=== PATIENT | male | born 1990 | race Caucasian/White ===

== ENCOUNTER 2017-07-30 19:33 | Inpatient (IN) | payer OTHER ==
[~2017-07-30] VITALS: Ht 177.8 cm; Wt 64.0 kg
[2017-07-30] MEDS ORDERED: OPTIRAY 320 IV PRN (20:45)
[2017-07-30 21:09] LABS: HEMATOCRIT 44.8 % (42-52); HEMOGLOBIN 16.1 g/dL (14.0-18.0); MEAN CELL VOLUME 86.2 fL (80-100); MEAN CORPUSCULAR HGB CONC 35.9 g/dl (32-36); MEAN PLATELET VOLUME 11.2 fL (7.4-10.4); PLATELET COUNT 265 K/uL (130-400); RED CELL DISTRIBUTION WIDTH CV 13.1 % (11.5-14.5); RED CELL DISTRIBUTION WIDTH SD 41.8 fL (36.4-46.3); WHITE BLOOD COUNT 11.13 K/uL (4.8-10.8)
[2017-07-30 21:19] LABS: ALBUMIN 4.6 gm/dl (3.4-5.0); CALCIUM 9.4 mg/dl (8.5-10.1); POTASSIUM 3.6 mmol/L (3.5-5.1)
--- NOTE | 2017-07-30 22:00 | DIAGNOSTIC IMAGING REPORT ---
HEAD COMBO HISTORY: 27 years-old Male poss mass or bleed, bizzare behavior acute altered behavior COMPARISON: None available TECHNIQUE: Multiple axial CT images of the head were obtained both with and without the use of IV 94 no Optiray 320 IV contrast. A dose lowering technique was used consistent with the principals of MOLLY. FINDINGS: There is no acute intracranial hemorrhage, midline shift, abnormal extra-axial collections, hydrocephalus, territorial ischemia or intracranial mass. There is no abnormal intra-axial or extra-axial enhancement identified. Cerebral venous sinuses appear patent. No skull fracture. Mastoid air cells and middle ear cavities are clear. Paranasal sinuses are also generally clear. Soft tissues and orbits are unremarkable. IMPRESSION: No acute intracranial abnormality or abnormal enhancement. The above report was generated using voice recognition software. It may contain grammatical, syntax or spelling errors. Electronically signed by: Harshil Chicas M.D. 07/30/2017 9:58 PM Dictated Date/Time: 07/30/2017 9:55 PM
--- NOTE | 2017-07-30 23:41 | EMERGENCY ROOM VISIT NOTE ---
History Report prepared by Daily: Curt Tolliver Under the Supervision of: Dr. Tyron Steele M.D. First contact with patient: 20:07 Chief Complaint: MENTAL HEALTH EVALUATION Stated Complaint: MENTAL HEALTH EVAUATION History of Present Illness The patient is a 27 year old male who presents to the Emergency Room with complaints of constant disorientation beginning five days ago. Per sister, the patient smoked marijuana five days ago and has seemed forgetful and disoriented since. She notes that the patient came to their childhood home the next day and could not remember where the water glasses were or the pet's names. She reports that since then, the patient has started to slowly remember things. She states that the patient has not been sleeping much. She notes that the patient was drug tested, but reports that the only thing that came back positive was marijuana. She states that the patient also smokes cigarettes, and notes that smoking seems to worsen his anxiety. The patient notes that he does not have any suicidal ideations because he "loves himself too much," but reports that he believes that he is immortal. The patient states that he has a history of OCD but does not have any other medical problems. He notes that he has "had a surreal week, and is currently trying to put the pieces together." He reports that he has been a "bit more poetic than usual and does not seem to have a perfect grasp on reality." The patient states that he has "black, pace, and white in his head," and notes "that the pace section is currently getting larger." Per mother, the patient seems to be regressing to more childlike behaviors. She notes that he is hugging her more, crying, and taking about magic and wizards. Source of History: patient, parent (mother), family (sister) Onset: five days ago Position: head Quality: other (disorientation) Timing: constant Note: Per sister, the patient has not been sleeping much and has been more forgetful. The patient denies any suicidal ideations. Per mom, the patient has been regressing back to more childlike behaviors. Review of Systems See HPI for pertinent positives & negatives. A total of 10 systems reviewed and were otherwise negative. Past Medical & Surgical Medical Problems: (1) OCD (obsessive compulsive disorder) Family History No pertinent family history stated. Social History Smoking Status: Current Some Day Smoker Drug Use: marijuana Marital Status: in relationship Housing Status: lives with significant other Occupation Status: employed Current/Historical Medications No Active Prescriptions or Reported Meds Allergies Coded Allergies: Amoxicillin (Verified Allergy, Unknown, Rash, 07/30/17) Clavulanic Acid (Verified Allergy, Unknown, Rash, 07/30/17) Physical Exam Vital Signs Date Time Temp Pulse Resp B/P (MAP) Pulse Ox O2 Delivery O2 Flow Rate FiO2 07/30/17 21:33 80 20 133/89 98 Room Air 07/30/17 19:38 36.7 75 18 142/87 100 Room Air Physical Exam GENERAL: Patient is in no acute distress. HEENT: No acute trauma, normocephalic atraumatic, mucous membranes moist, no nasal congestion, no scleral icterus, pupils equal and reactive to light. NECK: No stridor, no adenopathy, no meningismus, trachea is midline. LUNGS: Clear to auscultation bilaterally, no wheeze, no rhonchi, breath sounds equal. HEART: Without murmurs gallops or rubs, regular rate and rhythm. ABDOMEN: Soft, nontender, bowel sounds positive, no hernias, no peritonitis. EXTREMITIES: No cyanosis or edema, full range of motion of all the joints without pain or difficulty, no signs for acute trauma. NEUROLOGIC: Oriented x 3, no acute motor or sensory deficits, no focal weakness , no cerebellar dysfunction or pronator drift, no speech slur. SKIN: No rash, no jaundice, no diaphoresis. PSYCH: Cooperative, voluntary, tangential thinking, seems detached from reality , bizarre answers to simple questions, denies being suicidal. Medical Decision & Procedures ER Provider Diagnostic Interpretation: Radiology results as stated below per my review and radiologist interpretation: HEAD COMBO FINDINGS: There is no acute intracranial hemorrhage, midline shift, abnormal extra-axial collections, hydrocephalus, territorial ischemia or intracranial mass. There is no abnormal intra-axial or extra-axial enhancement identified. Cerebral venous sinuses appear patent. No skull fracture. Mastoid air cells and middle ear cavities are clear. Paranasal sinuses are also generally clear. Soft tissues and orbits are unremarkable. IMPRESSION: No acute intracranial abnormality or abnormal enhancement. The above report was generated using voice recognition software. It may contain grammatical, syntax or spelling errors. Electronically signed by: Harshil Chicas M.D. 07/30/2017 9:58 PM Laboratory Results 07/30/17 20:35 07/30/17 20:35 Test 07/30/17 20:35 07/30/17 20:43 07/30/17 22:25 Red Blood Count 5.20 M/uL (4.7-6.1) Mean Corpuscular Volume 86.2 fL (80-100) Mean Corpuscular Hemoglobin 31.0 pg (25-34) Mean Corpuscular Hemoglobin Concent 35.9 g/dl (32-36) RDW Standard Deviation 41.8 fL (36.4-46.3) RDW Coefficient of Variation 13.1 % (11.5-14.5) Mean Platelet Volume 11.2 fL (7.4-10.4) Anion Gap 7.0 mmol/L (3-11) Est Creatinine Clear Calc Drug Dose 102.4 ml/min Estimated GFR () 118.2 Estimated GFR (Non- 102.0 BUN/Creatinine Ratio 11.7 (10-20) Calcium Level 9.4 mg/dl (8.5-10.1) Total Bilirubin 1.1 mg/dl (0.2-1) Aspartate Amino Transf (AST/SGOT) 23 U/L (15-37) Alanine Aminotransferase (ALT/SGPT) 26 U/L (12-78) Alkaline Phosphatase 67 U/L (45-117) Total Protein 8.0 gm/dl (6.4-8.2) Albumin 4.6 gm/dl (3.4-5.0) Globulin 3.4 gm/dl (2.5-4.0) Albumin/Globulin Ratio 1.3 (0.9-2) Thyroid Stimulating Hormone (TSH) 1.690 uIu/ml (0.300-4.500) Salicylates Level < 1.7 mg/dl (2.8-20) Acetaminophen Level < 2 ug/ml (10-30) Ethyl Alcohol mg/dL < 3.0 mg/dl (0-3) Urine Color YELLOW Urine Appearance CLEAR (CLEAR) Urine pH 5.5 (4.5-7.5) Urine Specific [place] 1.040 (1.000-1.030) Urine Protein NEG (NEG) Urine Glucose (UA) NEG (NEG) Urine Ketones NEG (NEG) Urine Occult Blood NEG (NEG) Urine Nitrite NEG (NEG) Urine Bilirubin NEG (NEG) Urine Urobilinogen NEG (NEG) Urine Leukocyte Esterase SMALL (NEG) Urine WBC (Auto) 1-5 /hpf (0-5) Urine RBC (Auto) 0-4 /hpf (0-4) Urine Hyaline Casts (Auto) 0 /lpf (0-5) Urine Epithelial Cells (Auto) 5-10 /lpf (0-5) Urine Bacteria (Auto) NEG (NEG) Urine Opiates Screen NEG (NEG) Urine Methadone, Qualitative NEG (NEG) Urine Barbiturates NEG (NEG) Urine Phencyclidine (PCP) Level NEG (NEG) Ur Amphetamine/Methamphetamine NEG (NEG) MDMA (Ecstasy) Screen NEG (NEG) Urine Benzodiazepines Screen NEG (NEG) Urine Cocaine Metabolite NEG (NEG) Urine Marijuana (THC) NEG (NEG) Laboratory results reviewed by me. ED Course 2007: The patient was evaluated in room A7. A complete history and physical exam was performed. 2330: I spoke to psychiatric case management about the patient. 0042: Upon reexamination the patient is stable. I discussed results and treatment plan with the patient. He verbalizes agreement and understanding. The patient has been admitted to [facility] for further evaluation and treatment. Medical Decision Differential diagnoses include: brain mass, drug/alcohol abuse, electrolyte abnormalities, thyroid disorder, psychotic break, psychosis, and schizophrenia. There is a mild leukocytosis, this could be consistent with infection or just the stress of his situation. No concerning anemia. No significant electrolyte abnormality, kidney failure or hepatitis. The patient appears to be in a euthyroid state. Aspirin, Tylenol and alcohol levels were undetectable. Urine tox was negative. Urinalysis did not show evidence for infection. Brain CT showed no acute bleed or mass-effect, no tumor noted. The patient presents with bizarre behavior for the last several days. His medical workup has returned unrevealing. He was felt medically clear for a psychiatric evaluation. The patient was seen by psychiatry case management. He has signed in voluntarily to our hospital's psychiatric floor. The patient appears to be suffering a new psychotic break. His family has been informed. Patient is being transferred to the third floor of his hospital. Blood Pressure Screening Patient's blood pressure: Elevated blood pressure Blood pressure disposition: Elevated BP felt to be situational Impression Primary Impression: Psychosis Scribe Attestation The scribe's documentation has been prepared under my direction and personally reviewed by me in its entirety. I confirm that the note above accurately reflects all work, treatment, procedures, and medical decision making performed by me. Departure Information Dispostion Mental Health Acute Care Prescriptions No Active Prescriptions or Reported Meds Referrals No Doctor, Assigned (PCP) Patient Instructions My [facility]
[2017-07-31] MEDS ORDERED: NURSING VERBAL MED ORDER ONE ×2 (00:45→18:00)
[2017-07-31 00:57] VITALS: O2SAT 98
[2017-07-31] MEDS ORDERED: MAGNESIUM HYDROXIDE SUSP 30 ML UDC PO PRN (01:15)
[2017-07-31] MEDS ORDERED: ALUMINUM/MAGNESIUM SUSP 30 ML UDC PO PRN (01:15)
[2017-07-31] MEDS ORDERED: ACETAMINOPHEN 325 MG TAB PO PRN (01:15)
[2017-07-31] MEDS ORDERED: BISMUTH SUBSALICYLATE PER ML OMNICELL CHARGE PO PRN (01:15)
[2017-07-31] MEDS ORDERED: SODIUM CHLORIDE 0.65% NA SOLN 45 ML (OCEAN) PRN (01:15)
[2017-07-31 03:23] VITALS: BP 127/87; PULSE 88; TEMP 36.7; Ht 177.8 cm; Wt 64.0 kg
[2017-07-31 06:57] VITALS: BP_SYST 114; BP_SYST 123; BP_DIAS 78; BP_DIAS 87; PULSE 62; PULSE 76; TEMP 36.7
--- NOTE | 2017-07-31 08:56 | Psychiatric History & Physical ---
History Date of Service Jul 31, 2017. Identifying Data Ja Gordon is a 27-year-old male admitted on Jul 31, 2017 at 00:49 who recently returned to live with his parents in [place], [place]. Ja Gordon was admitted on a 201 voluntary commitment. Patient is admitted from home. The patient was brought to the ED by the family. Information provided by the patient is considered to be unreliable and greatly disorganized. Chief Complaint "Yeah, I am a little concerned about all the cameras. It is almost like "who watches the watcher", you know?" History of Present Illness Ja Gordon 27-year-old male who was driven to the emergency room by his family for a mental health evaluation. Family reported "constant disorientation" for the past 5 days with behavior. Pt states he uses substances to "look at everything from different perspectives". He states he uses marijuana and cigarettes at times which allow him to experience a "normal, elevated, and depressed" view of situations, "that of course is influenced by my current mood, it would be graphed almost as 3 parallel waves." Pt states 2- 3 months ago he "pieced everything together". His description of this stay, but generally meaning he has figured out the meaning of life, and how best to manage the world. Patient refers to this idea as a "puzzle/joke -because it means when you figure it out for yourself". Patient states, "I have the information and trying to be cautious, but goes fast as I can." Pt reports "several organizations who have figured it out too", but states is trying to "find the good guys." When questioned about the events leading to his admission, the patient states " I had an experience, you could say it was caused by the Divine." Pt reports accepting a "marijuana/vape shot" from a downstairs neighbor several days ago. He states he was with his ex-girlfriend at the time. Pt reports it was in the high that he "solved the puzzle" in front of his ex, "who referred to herself as cande". He states she became distraught at his conclusion and "feared the world would end". "That's what happens when you solve the puzzle for other people - they get scared". Pt reports he set out to further explain his new insight and was found by family members walking the streets of [place], "in my ismael shirt, which didn't necessarily work other than I guess I was walking in front of traffic." Pt reports he was taken home by his family and "put in isolation". ED notes state the family presented for mental health evaluation upon recommendation from a family friend/therapist. Pt reports limited sleep for an unknown period of time. He states he sleeps at "6-15 minute clips, but I feel refreshed. Still disoriented though." He feels he reached this state due to malnutrition and believes he can heal himself through proper nutritional intake, "something I wasn't paying close enough attention to before." Family reports a 20lb weight loss in the last few months. Pt is requesting a visit from dietary to further discuss the matter. He reports his only psychiatric history being a diagnosis of OCD which he views as a "super power". He reports a 3-week trial of buspirone, initially prescribed for his OCD, but states he only took it to aid with smoking cessation. Pt states, "there is nothing psychologically wrong with me, that's why I never saw anyone." Pt is severely disorganized and shares with this provider the extent of his knowledge and "how everything is interwoven". Pt states several times, "is this where the straight jackets come out?" He denies overt depression and states, "I trained in a depressed state my entire life, I feel better with myself now." Pt also denies symptoms of anxiety, feeling he can "turn anxious energy into positive energy." Pt offers a great deal of philosophical anecdotes to his history, and closes by saying, "If I'm the first one here, then I'm the CPU for the whole human race - that's not a title I want to take, I 'd rather just do computing while I'm here." Pt appears to believe that he is involved in a plan here on the unit and is seeking answers as to our agenda and how we will be utilizing him. He denies SI/HI, current A/V hallucinations, and PTSD. Past Psychiatric History Current OP Treatment: no current treatment Prior OP Treatment: no prior treatment Prior Psych Hospitalizations: none Access to a Gun: No Suicide Attempts: No Past Medication Trials Per patient report: - Buspirone: 3 week duration 2 years ago, reports using it for smoking cessation Additional Notes Patient reports seeing a physician for a diagnosis of OCD. States he was told "medicating people strips away their ability to cope". Denies therapy past, stating he always viewed his OCD as a "super power". Past Medical/Surgical History History of Concussion/Seizure: No Allergies Allergies: Coded Allergies: Amoxicillin (Verified Allergy, Unknown, Rash, 07/30/17) Clavulanic Acid (Verified Allergy, Unknown, Rash, 07/30/17) Home Medications No Active Prescriptions or Reported Meds Family History History of Suicide: No Psychiatric History: No Alcohol Use Alcohol Use In Past 12 Months: No AUDIT Total Score: 0 Denies any alcohol use. Smoking Use Smoking Status: Light Tobacco Smoker Substance History Reports "diverse and unique" substance abuse history: Kava Kava, Salvia, "so much weed", and cigarettes. Notes state a reported use of 3-4 bowls of pot per day. Personal History Lives in: [place], [place] - "but I'm flexible in that" Education: graduated from high school, started college (some classes at [employer] and [employer], [place]) Work History: Reports having a job at [employer] [place] feels they are a "linked organization as well" Relationship History: never Children: None Spiritual Affiliation: Remains unclear Legal History: none Psychological Trauma History: Denies Hx Traumatic Event Review of Systems Psych: denies symptoms other than stated above Constitutional: denied Cardiovascular: denied GI: denied Neurologic: denied Remainder of 10 body systems also reviewed and denied other than noted above. Examination Physical Examination A physical exam was performed in the ER prior to admission to the unit by Dr. Tyron Steele M.D.. I accept that physical as correct/medical clearance for the inpatient physical exam. Vital Signs Vital Signs Past 12 Hours Date Time Temp Pulse Resp B/P (MAP) Pulse Ox O2 Delivery O2 Flow Rate FiO2 07/31/17 06:57 36.7 62 16 114/78 76 123/87 07/31/17 03:23 36.7 88 20 127/87 07/31/17 00:57 91 20 98 07/30/17 21:33 80 20 133/89 98 Room Air Laboratory Results Last 24 Hours Test 07/30/17 20:35 07/30/17 20:43 07/30/17 22:25 White Blood Count 11.13 K/uL Red Blood Count 5.20 M/uL Hemoglobin 16.1 g/dL Hematocrit 44.8 % Mean Corpuscular Volume 86.2 fL Mean Corpuscular Hemoglobin 31.0 pg Mean Corpuscular Hemoglobin Concent 35.9 g/dl RDW Standard Deviation 41.8 fL RDW Coefficient of Variation 13.1 % Platelet Count 265 K/uL Mean Platelet Volume 11.2 fL Sodium Level 140 mmol/L Potassium Level 3.6 mmol/L Chloride Level 108 mmol/L Carbon Dioxide Level 25 mmol/L Anion Gap 7.0 mmol/L Blood Urea Nitrogen 12 mg/dl Creatinine 1.00 mg/dl Est Creatinine Clear Calc Drug Dose 102.4 ml/min Estimated GFR () 118.2 Estimated GFR (Non- 102.0 BUN/Creatinine Ratio 11.7 Random Glucose 87 mg/dl Calcium Level 9.4 mg/dl Total Bilirubin 1.1 mg/dl Aspartate Amino Transf (AST/SGOT) 23 U/L Alanine Aminotransferase (ALT/SGPT) 26 U/L Alkaline Phosphatase 67 U/L Total Protein 8.0 gm/dl Albumin 4.6 gm/dl Globulin 3.4 gm/dl Albumin/Globulin Ratio 1.3 Thyroid Stimulating Hormone (TSH) 1.690 uIu/ml Salicylates Level < 1.7 mg/dl Acetaminophen Level < 2 ug/ml Ethyl Alcohol mg/dL < 3.0 mg/dl Urine Color YELLOW Urine Appearance CLEAR Urine pH 5.5 Urine Specific [place] 1.040 Urine Protein NEG Urine Glucose (UA) NEG Urine Ketones NEG Urine Occult Blood NEG Urine Nitrite NEG Urine Bilirubin NEG Urine Urobilinogen NEG Urine Leukocyte Esterase SMALL Urine WBC (Auto) 1-5 /hpf Urine RBC (Auto) 0-4 /hpf Urine Hyaline Casts (Auto) 0 /lpf Urine Epithelial Cells (Auto) 5-10 /lpf Urine Bacteria (Auto) NEG Urine Opiates Screen NEG Urine Methadone, Qualitative NEG Urine Barbiturates NEG Urine Phencyclidine (PCP) Level NEG Ur Amphetamine/Methamphetamine NEG MDMA (Ecstasy) Screen NEG Urine Benzodiazepines Screen NEG Urine Cocaine Metabolite NEG Urine Marijuana (THC) NEG Mental Examination During interview pt is: alert and oriented, cooperative Appearance: appropriately dressed, appropriately groomed (long hair and grown out ordaz, level of hygiene appears appropriate) Eye contact is: good Motor behavior is: psychomotor agitation (Fidgety) Speech: is pressured, other (Rapid, hyperverbal speech) Affect: euthymic (Almost euphoric) Mood is: other ("3 waves brought about substance abuse: Normal, elevated, and depressed") Thought process: circumstantial, tangential, flight of ideas, looseness of associations Thought content: preoccupation (With "puzzle/joke", feels he is here as part of "the plan"), paranoid (About "the work we are doing here" and who is watching the cameras), cognitive distortions, delusions, ideas of reference Suicidal thought are: denied, Plan: denied, Intent: denied Homicidal thoughts are: denied Hallucinations: other (Vaguely reports hallucinations in the past, denies currently. Does not appear to be responding to internal stimuli.) Cognition: language grossly intact, other (Memory attention limited by severe psychosis) Intelligence estimated to be: above average Insight: severely impaired Judgement: severely impaired Impression / Recommendations Impression 27-year-old male admitted to [address] [place] [address] due to family's concerns about recent disorientation. Patient reports taking several hits of marijuana approximately 5 days ago and family states the disorganization followed. Patient reports that he has figured out the plan and is searching for people to "bring on board " to help set it in motion. Patient treats this assessment almost as a job interview, making comments like, "I live in [place], but I am flexible in that, all of my belongings are here." -"I would like you to the study in calibrate me before we start anything new" - "I would like some sort of external monitoring device, and would want to talk with someone before we discussed anything implantable". Will treat patient as unspecified psychotic disorder, but it remains possible this is a substance induced psychosis. Patient has very little insight at this time, but is willing to consider atypical antipsychotic to assist with slowing down racing thoughts. Patient information on quetiapine was provided for his review. 50 mg as needed dose was ordered with a 100 mg dose scheduled for this evening. Patient will be offered this medication to help slow down thoughts and allow him to reach a state in which he can better tolerate an interview. Due to extreme state of psychosis, paranoia, and delusions patient is at risk of harm to self or others if discharged prematurely. He requires inpatient mental health treatment with likely further titration quetiapine to target symptoms. Inventory Assets Strengths: intelligence, supportive family Needs: lack of insight and sleep deprivation, racing delusional thoughts Risk Factors Assessment Male: Yes : Yes /single/: Yes Access to guns: No Health problems: No Substance use disorders: Yes Previous attempt: No Previous psychiatric stay: No Hopelessness: No Smoker: Yes Protective Factors Assessment Oriental Orthodox beliefs: Yes : No Responsible for young children: No Employed: Yes Stable relationships: Yes Supportive family: Yes Recommendations (1) Unspecified psychosis 07/31 - Seroquel 50mg prn ordered; 100mg dose to be offered tonight. Consider increasing to 200mg tomorrow evening. Pt provided with patient handout on the medication. - Encouraged use of medication to aid in clear thinking, regular sleeping habits, and good nutritional intake. - Will delay dietary consult until patient is more oriented to reality. Seems reasonable to request assistance due to reported 20lb weight loss, but would not likely be beneficial in his current disorganized state. - Gain supplemental from family as to timeline and extent of his current symptoms - Encourage participation in group and recreational therapies as appropriate and tolerated, discuss reality testing, and development of healthy coping strategies. - Family meeting with identified supports when patient appears more appropriate. (2) Substance use disorder 07/31 - unable to engage in adequate discussion on substance abuse behaviors at time of admission. Will continue to evaluate as patient becomes more reality oriented. Plan to provide counseling on recommendations for discontinuation of illicit substances when patient is more stable and better able to participate in discussion. Dr. Massey has personally been involved in the review of the above case and development of recommendations. CPT Code Initial Hospital Care: [id number]
[2017-07-31] MEDS: QUETIAPINE FUMARATE 25 MG TAB PO PRN (11:59)
[2017-07-31] MEDS: NICOTINE POLACRILEX 2 MG GUM MT PRN ×2 (14:51→17:47)
[2017-07-31] MEDS: hydrOXYzine HCL 25 MG TAB PO PRN ×2 (15:55→21:04)
[2017-07-31] MEDS: HALOPERIDOL 5 MG TAB PO PRN (18:23)
[2017-07-31] MEDS: NICOTINE 21 MG/24 HR TDSY EXT SCH (19:08)
[2017-07-31] MEDS: QUETIAPINE FUMARATE 100 MG TAB PO SCH (21:01)
[2017-08-01] MEDS: HALOPERIDOL 5 MG TAB PO PRN (00:16)
[2017-08-01] MEDS: QUETIAPINE FUMARATE 25 MG TAB PO PRN (00:17)
[2017-08-01] MEDS: hydrOXYzine HCL 25 MG TAB PO PRN ×3 (00:17→22:14)
[2017-08-01 06:34] VITALS: BP_SYST 107; BP_SYST 115; BP_DIAS 76; BP_DIAS 79; PULSE 119; PULSE 92; TEMP 36.5
[2017-08-01] MEDS: NICOTINE 21 MG/24 HR TDSY EXT SCH (09:02)
--- NOTE | 2017-08-01 12:38 | Psychiatric Progress Notes ---
Progress Note Date of Service Aug 01, 2017. Interval History Ja Gordon is a 27-year-old male admitted on Jul 31, 2017 at 00:49 who recently returned to live with his parents in [place], [place]. Ja Gordon was admitted on a 201 voluntary commitment. Patient is admitted from home. The patient was brought to the ED by the family. Information provided by the patient is considered to be unreliable and greatly disorganized. Chief Complaint "It's been weird. I spent a full day going down the rabbit hole". Subjective Patient was seen & assessed interval progress reviewed with Nursing. Staff reports the patient was reporting worsening of racing thoughts. He did sleep for a total of 3 hours last evening in two separate cycles. Pt received 2 doses of Haldol last evening along with his HS dose of Seroquel. Pt was seen today to assess progress since admission. Pt appears to be slowed today in regard to rapid speech and flight of ideas observed yesterday; however, this has the patient visibly frustrated. He reports feeling as though "I was wanting so much to know all the answers, and then realized a lot of people don' t know everything and that's just fine. It's just hard to wrap my head around that." Pt shows increasing insight as he has begun to understand why his thoughts and behaviors at admission were unusual and concerning. Pt declines further increase in medications at this time, despite encouragement. He is interested in observing his response to his current doses. Pt seen frequently closing his eyes during interview, as if fatigued, and encouraged to catch up on sleep today if able. Pt appreciated advice and denies other concerns or needs at this time. Review of Systems Psych: denies symptoms other than stated above Constitutional: reports feeling "foggy" Cardiovascular: denied GI: denied Neurologic: denied Remainder of 10 body systems also reviewed and denied other than noted above. Sleep Information Total Hours of Sleep: 3.00 Meal Information Percent of Breakfast Consumed: 100 Percent of Lunch Consumed: 100 Percent of Dinner Consumed: 100 Mental Status Exam During interview pt is: alert and oriented, cooperative Appearance: appropriately dressed, appropriately groomed (long hair and grown out ordaz, level of hygiene appropriate) Eye contact is: good Motor behavior is: steady gait & station, no abnormal motor movements Speech: normal in rate, rhythm & volume (far less pressured), other (Rapid, hyperverbal speech) Affect: depressed, blunted Mood is: depressed Thought process: circumstantial, flight of ideas (improving slightly), looseness of associations (improving slightly) Thought content: cognitive distortions, delusions (less prominent today), ideas of reference Suicidal thought are: denied, Plan: denied, Intent: denied Homicidal thoughts are: denied Hallucinations: other (Does not appear to be responding to internal stimuli.) Cognition: language grossly intact, other (Memory and attention limited by severe psychosis) Intelligence estimated to be: above average Insight: impaired Judgement: impaired Impression Pt slowed considerably from doses of Haldol 5mg x2 and scheduled and prn dosing of Seroquel. Reports increased feelings of depression, but is appearing to be more reliable in history and orientation to reality. Due to patient's inquisitive and self-reflective nature, he is unwilling for increase in HS Seroquel at this time, as "I like to be able to observe how my body is responding to things and I'd like a slower process." Fasting labs reviewed: fasting glucose elevated at 100, lipid panel wnl. Pt is to have a family meeting tomorrow and, while it may be too soon for a productive session, it will be good to gain further understanding from parents as to the patient's recent history. Pt remains at risk of harm to self or others as we continue to target disorganized thoughts and behaviors medically and therapeutically. He is a high risk for decompensation if discharged prematurely. Plan (1) Unspecified psychosis 07/31 - Seroquel 50mg prn ordered; 100mg dose to be offered tonight. Consider increasing to 200mg tomorrow evening. Pt provided with patient handout on the medication. - Encouraged use of medication to aid in clear thinking, regular sleeping habits, and good nutritional intake. - Will delay dietary consult until patient is more oriented to reality. Seems reasonable to request assistance due to reported 20lb weight loss, but would not likely be beneficial in his current disorganized state. - Gain supplemental from family as to timeline and extent of his current symptoms - Encourage participation in group and recreational therapies as appropriate and tolerated, discuss reality testing, and development of healthy coping strategies. - Family meeting with identified supports when patient appears more appropriate. 08/01 - Continue medications as above. Unwilling for increase to HS Seroquel at this time. - Fasting labs reviewed: fasting glucose elevated at 100, lipid panel wnl - Dietary consult if still interested once more appropriate, as still not likely to benefit fully from the encounter. - Encouraged to rest and catch up on sleep if able. - Family meeting with parents scheduled for tomorrow (2) Substance use disorder 07/31 - unable to engage in adequate discussion on substance abuse behaviors at time of admission. Will continue to evaluate as patient becomes more reality oriented. Plan to provide counseling on recommendations for discontinuation of illicit substances when patient is more stable and better able to participate in discussion. Discharge / Aftercare Planning Primary Care Physician: Name: Dr. Casillas Therapist: Name: n/a Financial Manager: Name: pt denied Visit Code E&M Code: 35207 Inventory Assets Strengths: intelligence, supportive family Needs: lack of insight and sleep deprivation, racing delusional thoughts Risk Factors Assessment Male: Yes : Yes /single/: Yes Health problems: No Substance use disorders: Yes Previous attempt: No Previous psychiatric stay: No Hopelessness: No Smoker: Yes Protective Factors Assessment Evangelical beliefs: Yes : No Responsible for young children: No Employed: Yes Stable relationships: Yes Supportive family: Yes Data Vital Signs Last 24 Hrs: Date Time Temp Pulse Resp B/P (MAP) Pulse Ox O2 Delivery O2 Flow Rate FiO2 08/01/17 06:34 36.5 92 18 115/76 119 107/79 Meds Administered Last 24 Hrs: Meds Administered (Past 24Hrs) Medications (Trade) Dose Ordered Sig/Maldonado Route Start Time Stop Time Status Last Admin Dose Admin Hydroxyzine HCl (Vistaril Tab) 50 mg HSZ PRN PO 07/31/17 01:15 08/30/17 01:14 08/01/17 00:17 50 MG Hydroxyzine HCl (Vistaril Tab) 25 mg Q4H PRN PO 07/31/17 01:15 08/30/17 01:14 08/01/17 02:42 25 MG Quetiapine Fumarate (seroQUEL TAB) 50 mg Q6 PRN PO 07/31/17 10:15 08/30/17 10:14 08/01/17 00:17 50 MG Quetiapine Fumarate (seroQUEL TAB) 100 mg HS PO 07/31/17 22:00 08/30/17 21:59 07/31/17 21:01 100 MG Nicotine Polacrilex (Nicorette 2MG Gum) 1 piece Q2H PRN MT 07/31/17 14:45 08/30/17 14:44 07/31/17 17:47 1 PIECE Haloperidol (Haldol Tab) 5 mg Q4 PRN PO 07/31/17 18:00 08/30/17 17:59 08/01/17 00:16 5 MG Nicotine (Nicoderm Cq 21MG Patch) 1 patch QAM EXT 07/31/17 18:15 08/30/17 18:14 08/01/17 09:02 1 PATCH Miscellaneous (Remove Nicoderm Patch) 1 ea QAM N/A 08/01/17 09:00 08/31/17 08:59 08/01/17 00:09 1 EA Lab Results Last 24 Hrs: Last 24 Hours Test 08/01/17 07:57 Fasting Glucose 100 mg/dl Triglycerides Level 82 mg/dl Cholesterol Level 145 mg/dl HDL Cholesterol 43 mg/dl LDL Cholesterol, Calculated 86 mg/dl VLDL Cholesterol, Calculated 16 mg/dl Cholesterol/HDL Ratio 3.4
[2017-08-01] MEDS: QUETIAPINE FUMARATE 100 MG TAB PO SCH (20:54)
[2017-08-02 06:20] VITALS: BP_SYST 126; BP_SYST 91; BP_DIAS 56; BP_DIAS 72; PULSE 73; PULSE 89; TEMP 36.7
[2017-08-02] MEDS: NICOTINE 21 MG/24 HR TDSY EXT SCH (08:16)
--- NOTE | 2017-08-02 11:08 | Psychiatric Progress Notes ---
Progress Note Date of Service Aug 02, 2017. Interval History Ja Gordon is a 27-year-old male admitted on Jul 31, 2017 at 00:49 who recently returned to live with his parents in [place], [place]. Ja Gordon was admitted on a 201 voluntary commitment. Patient is admitted from home. The patient was brought to the ED by the family. Information provided by the patient is considered to be unreliable and greatly disorganized. Chief Complaint "I now realize going too deep into magic made me lose touch with reality ". Subjective Patient was seen & assessed interval progress reviewed with Treatment Team. Staff report patient signed a 72 hour notice yesterday which will come due on the at 1540. He is described as less tangential. He was able to teach some of his peers a card game yesterday and he rated his mood a 6 out of 10 last evening. This morning he describes feeling anxious and considering need for an identity as he feels that he lost his identity and his effort to keep an open mind to everything. He states he tried to cheat the system to use Magic but now he realizes that, even though he believes Magic is real, because it is incongruent with how the rest of the world works, that it is destructive for him to pursue. He describes feeling some sadness that he has come to realize that he is not going to "save the world." He believes he was engaging in "magical thinking" prior to his use of the synthetic drugs prior to admission. He denies feeling suicidal and states that he likes himself too much to do something like that. He denies auditory or visual hallucinations although at times he appears possibly responding to such as he looks off to the left and there can be significant delays in his responses however this could simply be a function of his thought disorganization. He expresses reluctance to consider increased dose of the antipsychotic and expresses hope that he will be able to soon weaned from the medication. We discussed the importance of getting him thinking and feeling like his normal self as a first step before we consider trying to get him off of the medications. Review of Systems He reports improving sleep. Denies feeling depressed today Musculoskeletal: No joint pain, No muscle pain, No swelling, No calf pain, No problem reported Neurologic: No balance problems Sleep Information Total Hours of Sleep: 6.25 Meal Information Percent of Breakfast Consumed: 90 Percent of Lunch Consumed: 75 Percent of Dinner Consumed: 100 Mental Status Exam During interview pt is: cooperative, other (Appears drowsy) Appearance: appropriately dressed, appropriately groomed (long hair and grown out ordaz, level of hygiene appropriate) Eye contact is: good Motor behavior is: steady gait & station, no abnormal motor movements Speech: normal in rate, rhythm & volume, other (Speech has converted from rapid and hyperverbal to rather slow and at times latent) Affect: blunted Mood is: anxious Thought process: circumstantial, flight of ideas (Significantly reduced), perseveration (He perseverates on magic and mormon) Thought content: cognitive distortions, delusions, ideas of reference Suicidal thought are: denied, Plan: denied, Intent: denied Homicidal thoughts are: denied Hallucinations: denies auditory, denies visual Cognition: language grossly intact Intelligence estimated to be: above average Insight: impaired Judgement: impaired Impression Patient has considerably slowed remains somewhat disorganized and delusionally preoccupied. Plan (1) Unspecified psychosis 07/31 - Seroquel 50mg prn ordered; 100mg dose to be offered tonight. Consider increasing to 200mg tomorrow evening. Pt provided with patient handout on the medication. - Encouraged use of medication to aid in clear thinking, regular sleeping habits, and good nutritional intake. - Will delay dietary consult until patient is more oriented to reality. Seems reasonable to request assistance due to reported 20lb weight loss, but would not likely be beneficial in his current disorganized state. - Gain supplemental from family as to timeline and extent of his current symptoms - Encourage participation in group and recreational therapies as appropriate and tolerated, discuss reality testing, and development of healthy coping strategies. - Family meeting with identified supports when patient appears more appropriate. 08/01 - Continue medications as above. Unwilling for increase to HS Seroquel at this time. - Fasting labs reviewed: fasting glucose elevated at 100, lipid panel wnl - Dietary consult if still interested once more appropriate, as still not likely to benefit fully from the encounter. - Encouraged to rest and catch up on sleep if able. - Family meeting with parents scheduled for tomorrow 08/02 -Patient again unwilling to increase Seroquel and in fact he is appearing rather drowsy this morning. Discussed consideration for converting Seroquel to olanzapine for more potent D2 blockade with less sedation however he preferred to give it another day before considering an alternative. No additional Haldol prn's used overnight and should be utilized for ongoing psychosis. -Family meeting scheduled for today -72 hour notice has been signed and will come due on the 1539 (2) Substance use disorder 07/31 - unable to engage in adequate discussion on substance abuse behaviors at time of admission. Will continue to evaluate as patient becomes more reality oriented. Plan to provide counseling on recommendations for discontinuation of illicit substances when patient is more stable and better able to participate in discussion. Discharge / Aftercare Planning Primary Care Physician: Name: Dr. Casillas Therapist: Name: n/a Rd Scientist: Name: pt denied Visit Code E&M Code: 50398 Inventory Assets Strengths: intelligence, supportive family Needs: lack of insight and sleep deprivation, racing delusional thoughts Risk Factors Assessment Male: Yes : Yes /single/: Yes Health problems: No Substance use disorders: Yes Previous attempt: No Previous psychiatric stay: No Hopelessness: No Smoker: Yes Protective Factors Assessment Baptism beliefs: Yes : No Responsible for young children: No Employed: Yes Stable relationships: Yes Supportive family: Yes Data Vital Signs Last 24 Hrs: Date Time Temp Pulse Resp B/P (MAP) Pulse Ox O2 Delivery O2 Flow Rate FiO2 08/02/17 06:20 36.7 73 16 91/56 89 126/72 Meds Administered Last 24 Hrs: Meds Administered (Past 24Hrs) Medications (Trade) Dose Ordered Sig/Maldonado Route Start Time Stop Time Status Last Admin Dose Admin Quetiapine Fumarate (seroQUEL TAB) 100 mg HS PO 07/31/17 22:00 08/30/17 21:59 08/01/17 20:54 100 MG Nicotine Polacrilex (Nicorette 2MG Gum) 1 piece Q2H PRN MT 07/31/17 14:45 08/30/17 14:44 07/31/17 17:47 1 PIECE Haloperidol (Haldol Tab) 5 mg Q4 PRN PO 07/31/17 18:00 08/30/17 17:59 08/01/17 00:16 5 MG Nicotine (Nicoderm Cq 21MG Patch) 1 patch QAM EXT 07/31/17 18:15 08/30/17 18:14 08/02/17 08:16 1 PATCH Miscellaneous (Remove Nicoderm Patch) 1 ea QAM N/A 08/01/17 09:00 5/21/18 08:59 08/01/17 00:09 1 EA
[2017-08-02] MEDS: HALOPERIDOL 5 MG TAB PO PRN (13:15)
[2017-08-02] MEDS: QUETIAPINE FUMARATE 100 MG TAB PO SCH (21:53)
[2017-08-03 06:43] VITALS: BP_SYST 106; BP_SYST 117; BP_DIAS 67; BP_DIAS 84; PULSE 82; PULSE 84; TEMP 36.5
[2017-08-03] MEDS: NICOTINE 21 MG/24 HR TDSY EXT SCH (08:39)
[2017-08-03] MEDS ORDERED: OLANZAPINE 5 MG TAB PO PRN (10:30)
--- NOTE | 2017-08-03 11:12 | Psychiatric Progress Notes ---
Progress Note Date of Service Aug 03, 2017. Interval History Ja Gordon is a 27-year-old male admitted on Jul 31, 2017 at 00:49 who recently returned to live with his parents in [place], [place]. Ja Gordon was admitted on a 201 voluntary commitment. Patient is admitted from home. The patient was brought to the ED by the family. Information provided by the patient is considered to be unreliable and greatly disorganized. Chief Complaint "I've realized I'm not here to save the world, and I don't believe in magic". Subjective Patient was seen & assessed interval progress reviewed with Treatment Team. Staff reports the patient has continued to display odd patterns of thinking as well as odd posturing on the unit. Pt has been receiving prn Haldol 5mg as well as prn Seroquel 50mg. Pt is reported to have slept 6.5 hours last evening. He had a family meeting with his parents yesterday and it was decided the patient would return to live with his parents until he is more stable. Pt was seen today to assess progress since admission. Pt dozes off consistently during our encounter, and challenges this provider's concern for that. Pt states his is feeling "a lot better" and no longer endorses "magic thoughts". Pt states, "There's a point where if you endorse magic enough, you begin to lose touch with reality, and I think that's where I was." Pt continues with the discussion in an odd and philosophical manner, but appears to be more reality oriented in his discussions. Pt states, "It's disturbing thinking back to how loose my grasp of reality was." Pt informs this provider that his has submitted his second 72-hour notice and is feels he no longer requires treatment here. Discussed with patient this provider's concern for his level of sedation, especially as he would likely benefit from ongoing titration of antipsychotic medications. Pt was eventually agreeable to switching to Zyprexa qHS in order to attempt to limit sedation. Pt remains resistant to many medication recommendations. He denies SI/HI, or onset of new psychiatric concerns. Review of Systems Psych: denies symptoms other than stated above Constitutional: reports feeling "foggy" Cardiovascular: denied GI: denied Neurologic: denied Remainder of 10 body systems also reviewed and denied other than noted above. Sleep Information Total Hours of Sleep: 6.50 Meal Information Percent of Breakfast Consumed: 100 Percent of Lunch Consumed: 100 Percent of Dinner Consumed: 100 Mental Status Exam During interview pt is: cooperative (limited in cooperation due to level of sedation), other (frequently drifting into sleep during interview) Appearance: appropriately dressed, disheveled Eye contact is: poor (drifting in and out of sleep) Motor behavior is: steady gait & station (appears steady, but drastically slowed), no abnormal motor movements Speech: normal in rate, rhythm & volume, other (speech remains rather slow and at times latent) Affect: flat Mood is: depressed, other (incongruent with reports of "feeling a lot better") Thought process: circumstantial, flight of ideas (Significantly reduced), perseveration (He perseverates on magic and zoroastrian, ongoing) Thought content: cognitive distortions, delusions, ideas of reference Suicidal thought are: denied, Plan: denied, Intent: denied Homicidal thoughts are: denied Hallucinations: denies auditory, denies visual Cognition: language grossly intact Intelligence estimated to be: above average Insight: impaired Judgement: impaired Impression Pt reports "improvement" and no further need for treatment; however, is has slowed to the point of concern for over-sedation. Disorganized thinking and delusional preoccupation continue. Pt informed of concern that, while medication has been helpful to clear his thought process, he is appearing sedated vs. disorganized. Discussed with patient recommendation to consolidate dosing to bedtime, with plan to increase Seroquel to 200mg qHS. Pt largely against further titration of Seroquel to target ongoing symptoms. Revisited idea of switching to olanzapine, which he was refusing yesterday. Pt is agreeable to trial of olanzapine 5mg in order to decrease level of sedation and more potently target any ongoing psychotic symptoms. Reinforced idea of reaching a period of stability on medications prior to considering weaning off, as patient is eager to be off medications as soon as possible. Will likely require further titration of olanzapine if willing. 72-hour notice re- submitted today, expires 08/06 @ 0930. Pt requires ongoing inpatient mental health treatment in order to monitor during medication changes and continue to reduce symptoms of psychosis. Pt remains at risk of decompensation with potential harm to self or others if discharged prematurely. Plan (1) Unspecified psychosis 07/31 - Seroquel 50mg prn ordered; 100mg dose to be offered tonight. Consider increasing to 200mg tomorrow evening. Pt provided with patient handout on the medication. - Encouraged use of medication to aid in clear thinking, regular sleeping habits, and good nutritional intake. - Will delay dietary consult until patient is more oriented to reality. Seems reasonable to request assistance due to reported 20lb weight loss, but would not likely be beneficial in his current disorganized state. - Gain supplemental from family as to timeline and extent of his current symptoms - Encourage participation in group and recreational therapies as appropriate and tolerated, discuss reality testing, and development of healthy coping strategies. - Family meeting with identified supports when patient appears more appropriate. 08/01 - Continue medications as above. Unwilling for increase to HS Seroquel at this time. - Fasting labs reviewed: fasting glucose elevated at 100, lipid panel wnl - Dietary consult if still interested once more appropriate, as still not likely to benefit fully from the encounter. - Encouraged to rest and catch up on sleep if able. - Family meeting with parents scheduled for tomorrow 08/02 -Patient again unwilling to increase Seroquel and in fact he is appearing rather drowsy this morning. Discussed consideration for converting Seroquel to olanzapine for more potent D2 blockade with less sedation however he preferred to give it another day before considering an alternative. No additional Haldol prn's used overnight and should be utilized for ongoing psychosis. -Family meeting scheduled for today -72 hour notice has been signed and will come due on the 1539; later rescinded 08/03 - Olanzapine 5mg qHS ordered with 5mg prn dosing q4h. Quetiapine d/c'd as patient unwilling for further titration to target thought blocking, and may be contributing to day-time sedation. - 72-hour notice re-submitted - expires 08/06 @ 0930 - Will require aftercare prior to discharge - Collateral information acquired from parents during family session yesterday (2) Substance use disorder 07/31 - unable to engage in adequate discussion on substance abuse behaviors at time of admission. Will continue to evaluate as patient becomes more reality oriented. Plan to provide counseling on recommendations for discontinuation of illicit substances when patient is more stable and better able to participate in discussion. 08/03 - The patient's reports history of substance use, including smoking marijuana believed to be related to this hospitalization. Brief intervention was offered and accepted Intervention was greater than 5 min in length. Brief interventions include: 1. Assess Readiness to Quit, 2. Advise: Help Patient to Reduce or Abstain from substance use, 3. Agree: Set Specific, Feasible Goals, 4. Assist: Anticipate barriers, Problem-Solving Solutions. Social work to 5. Arrange: Referrals to appropriate treatment. Summary of intervention: The patient is in precontemplation stage with regards to transtheoretical model of change. The patient is advised to decrease substance use due to interactions with medications and side effects which can lead to psychotic-appearing mentation and behaviors. The patient agreed to outpatient D&A counseling and will be provided with recovery materials to continue to education self on how to cope with their condition without substance use. Discharge / Aftercare Planning Primary Care Physician: Name: Dr. Casillas Therapist: Name: n/a Talent Acquisition Lead: Name: pt denied Visit Code E&M Code: 77195 Inventory Assets Strengths: intelligence, supportive family Needs: lack of insight and sleep deprivation, racing delusional thoughts Risk Factors Assessment Male: Yes : Yes /single/: Yes Health problems: No Substance use disorders: Yes Previous attempt: No Previous psychiatric stay: No Hopelessness: No Smoker: Yes Protective Factors Assessment Religion beliefs: Yes : No Responsible for young children: No Employed: Yes Stable relationships: Yes Supportive family: Yes Data Vital Signs Last 24 Hrs: Date Time Temp Pulse Resp B/P (MAP) Pulse Ox O2 Delivery O2 Flow Rate FiO2 08/03/17 06:43 36.5 82 18 106/67 84 117/84
[2017-08-03] MEDS: OLANZAPINE 5 MG TAB PO SCH (21:21)
[2017-08-04 06:50] VITALS: BP_SYST 102; BP_SYST 106; BP_DIAS 64; BP_DIAS 67; PULSE 69; PULSE 84; TEMP 36.8
[2017-08-04] MEDS: NICOTINE 21 MG/24 HR TDSY EXT SCH (08:27)
--- NOTE | 2017-08-04 10:36 | Psychiatric Progress Notes ---
Progress Note Date of Service Aug 04, 2017. Interval History Ja Gordon is a 27-year-old male admitted on Jul 31, 2017 at 00:49 who recently returned to live with his parents in [place], [place]. Ja Gordon was admitted on a 201 voluntary commitment. Patient is admitted from home. The patient was brought to the ED by the family. Information provided by the patient is considered to be unreliable and greatly disorganized. Chief Complaint "Pretty great, I came in thinking that magic was real". Subjective Patient was seen & assessed interval progress reviewed with Nursing. Staff report the patient has been denying thoughts about magic, attending groups and participating, but appears sedated, and is submitted another 72 hour notice yesterday. He had a visit with his mother, and was asking about being discharged, even though he had already been informed that it was recommended he stay for another 3-5 days. On my assessment today, the patient states that he feels he is doing "much better." He says that when he came into the hospital, he "believed that Magic was real, so obviously that was bad. But I've kind of sobered up from that drug trip." He says that he took "synthetic opioids, Sour Diesel, in a vape." He further clarifies that he is not sure if what he took was an opiate or a cannabinoids, but that it was some sort of synthetic drug that he smoked. An the Internet search states that Sour Diesel is a strain of cannabis sativa described as a cross between cannabis and caffeine. He talks about his chronic cannabis use, and states he has also used "dabs," a concentrated extract of THC. He states that he plans to avoid using drugs that he is unfamiliar with, stating "after having a psychotic break, realizing your grasp on reality can be really tenuous, I know it's not good. But I'm not gonna lie and say I'm never going to do it, I might be in a situation where it seems like a good idea." [place], and thinks he would be fine if he was getting it from a reputable source. He feels that the olanzapine is helpful, got his first dose last night, and states that his thoughts have slowed and are closer to their normal speed. He reports feeling less sedated on this medication, although he continues to feel somewhat sleepy during the day, but feels it is manageable. He says that previously he felt that he was "clogged up," pointing to his forehead, but now it feels "like I am wearing a hat or crown, but not uncomfortable." He denies hallucinations, suicidal thoughts, homicidal thoughts , and paranoia. He denies problems with sleep and appetite. 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 Review of Systems Reports "watery eyes,"but denies cough, sore throat, sneezing, runny nose. Denies nausea, vomiting, diarrhea, constipation. Reports some daytime sleepiness. Sleep Information Total Hours of Sleep: 7.25 Meal Information Percent of Breakfast Consumed: 90 Percent of Lunch Consumed: 95 Percent of Dinner Consumed: 100 Mental Status Exam During interview pt is: cooperative, other (Appears mildly sedated, heavy eyelids, but stays awake throughout the interview) Appearance: appropriately dressed, appropriately groomed (Full ordaz and long, wavy, brown hair) Eye contact is: good Motor behavior is: steady gait & station, no abnormal motor movements Speech: other (Mildly slowed speech) Affect: blunted (Sleepy, dulled, incongruent with stated mood) Mood is: other ("Pretty great") Thought process: goal directed, linear, logical (Some odd statements/ description) Thought content: reality based without delusions Suicidal thought are: Plan: denied, Intent: denied Homicidal thoughts are: denied Hallucinations: denies auditory, denies visual Cognition: language grossly intact Intelligence estimated to be: above average Insight: impaired Judgement: impaired Impression Sedation improved with the switch from quetiapine to olanzapine, and psychotic symptoms continue to improve. Continue olanzapine 5mg at bedtime. Continue to provide education about the risks of ongoing hallucinogen abuse and the need for treatment to maintain improvement and stability. He has limited insight, and resubmitted a 72-hour notice yesterday. Inpatient treatment is indicated at this time due to only tentative improvement in psychosis and high risk of rapid relapse if discharged prematurely. Plan (1) Unspecified psychosis 07/31 - Seroquel 50mg prn ordered; 100mg dose to be offered tonight. Consider increasing to 200mg tomorrow evening. Pt provided with patient handout on the medication. - Encouraged use of medication to aid in clear thinking, regular sleeping habits, and good nutritional intake. - Will delay dietary consult until patient is more oriented to reality. Seems reasonable to request assistance due to reported 20lb weight loss, but would not likely be beneficial in his current disorganized state. - Gain supplemental from family as to timeline and extent of his current symptoms - Encourage participation in group and recreational therapies as appropriate and tolerated, discuss reality testing, and development of healthy coping strategies. - Family meeting with identified supports when patient appears more appropriate. 08/01 - Continue medications as above. Unwilling for increase to HS Seroquel at this time. - Fasting labs reviewed: fasting glucose elevated at 100, lipid panel wnl - Dietary consult if still interested once more appropriate, as still not likely to benefit fully from the encounter. - Encouraged to rest and catch up on sleep if able. - Family meeting with parents scheduled for tomorrow 08/02 -Patient again unwilling to increase Seroquel and in fact he is appearing rather drowsy this morning. Discussed consideration for converting Seroquel to olanzapine for more potent D2 blockade with less sedation however he preferred to give it another day before considering an alternative. No additional Haldol prn's used overnight and should be utilized for ongoing psychosis. -Family meeting scheduled for today -72 hour notice has been signed and will come due on the 1539; later rescinded 08/03 - Olanzapine 5mg qHS ordered with 5mg prn dosing q4h. Quetiapine d/c'd as patient unwilling for further titration to target thought blocking, and may be contributing to day-time sedation. - 72-hour notice re-submitted - expires 08/06 @ 0930 - Will require aftercare prior to discharge - Collateral information acquired from parents during family session yesterday 08/04 -Continue olanzapine 5 mg nightly. -fasting labs were checked on 08/01/2017, glucose elevated at 100, cholesterol levels within normal limits. -Aftercare being arranged at [facility] Follow-up with PCP scheduled for 08/07/2017, as [facility] will not provide an appointment with a psychiatrist until he has been seen by his therapist twice. -Patient educated again about the importance of abstaining from hallucinogens due to the risk of psychosis. -He has submitted another 72 hour notice, which expires the morning of 2017. If he is unwilling to rescind it, he may be discharged as early as tomorrow. (2) Substance use disorder 07/31 - unable to engage in adequate discussion on substance abuse behaviors at time of admission. Will continue to evaluate as patient becomes more reality oriented. Plan to provide counseling on recommendations for discontinuation of illicit substances when patient is more stable and better able to participate in discussion. 08/03 - The patient's reports history of substance use, including smoking marijuana believed to be related to this hospitalization. Brief intervention was offered and accepted Intervention was greater than 5 min in length. Brief interventions include: 1. Assess Readiness to Quit, 2. Advise: Help Patient to Reduce or Abstain from substance use, 3. Agree: Set Specific, Feasible Goals, 4. Assist: Anticipate barriers, Problem-Solving Solutions. Social work to 5. Arrange: Referrals to appropriate treatment. Summary of intervention: The patient is in precontemplation stage with regards to transtheoretical model of change. The patient is advised to decrease substance use due to interactions with medications and side effects which can lead to psychotic-appearing mentation and behaviors. The patient agreed to outpatient D&A counseling and will be provided with recovery materials to continue to education self on how to cope with their condition without substance use. 08/04 -Reinforced psychoeducation regarding the risks of ongoing cannabis/other hallucinogen use, including return of psychotic symptoms, development of schizophrenia or another primary thought disorder, impairment in cognition and ability to function, and potential legal consequences. The patient demonstrates limited insight and judgment. Discharge / Aftercare Planning Primary Care Physician: Name: Dr. 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 Teacher: Name: pt denied Visit Code E&M Code: 47023 Inventory Assets Strengths: intelligence, supportive family Needs: Education about the risks of ongoing substance abuse, improved insight, outpatient treatment Risk Factors Assessment Male: Yes : Yes /single/: Yes Higher / Fall in social status: No Access to guns: No Health problems: No Substance use disorders: Yes Previous attempt: No Previous psychiatric stay: No Hopelessness: No Smoker: Yes Protective Factors Assessment Druze beliefs: Yes : No Responsible for young children: No Employed: Yes Stable relationships: Yes Supportive family: Yes Good rapport with provider: No Data Vital Signs Last 24 Hrs: Date Time Temp Pulse Resp B/P (MAP) Pulse Ox O2 Delivery O2 Flow Rate FiO2 08/04/17 06:50 36.8 69 18 106/64 84 102/67 Meds Administered Last 24 Hrs: Meds Administered (Past 24Hrs) Medications (Trade) Dose Ordered Sig/[place]on[place] Route Start Time Stop Time Status Last Admin Dose Admin Olanzapine (Zyprexa Tab) 5 mg HS PO 08/03/17 22:00 09/02/17 21:59 08/03/17 21:21 5 MG
[2017-08-04] MEDS: OLANZAPINE 5 MG TAB PO SCH (21:01)
[2017-08-05 06:48] VITALS: BP_SYST 101; BP_SYST 105; BP_DIAS 67; BP_DIAS 70; PULSE 49; PULSE 55; TEMP 36.5
[2017-08-05] MEDS ORDERED: NICO21DI4 EXT (08:23)
[2017-08-05] MEDS ORDERED: ZYP5 PO (08:23)
--- NOTE | 2017-08-05 08:43 | Discharge Instructions ---
Discharge Information Report Includes Report will include the: Discharge Instructions & Summary Admission Admission Date / Time: Jul 31, 2017 at 00:49 Reason for Admission: Mood Disorder Nos Discharge Discharge Diagnosis / Problem: Psychosis, substance abuse Condition at Discharge: Fair Discharge Goals Goal(s): Improve function, Improve disease control, Learn about illness, Therapeutic intervention, Specific goals (refer for substance abuse treatment) Activity Recommendations Activity Limitations: per Instructions/Follow-up section . Instructions / Follow-Up Instructions / Follow-Up . SPECIAL CARE INSTRUCTIONS: 1. Follow through with your scheduled aftercare appointments. If unable to keep an appointment, please call to reschedule. 2. Take your medication only as prescribed. Medication should not be changed or stopped without the approval of your doctor. In the event of worsening symptoms or concerns about side effects, contact your doctor immediately. 3. Utilize new healthy coping skills, anger management skills, and stress management skills learned during your hospitalization. Journal feelings and process them with a support person. Identify stressors or situations that may result in relapse, deterioration or inappropriate behaviors and develop a plan to deal with those issues. 4. If your coping skills are ineffective and you are in crisis, contact your outpatient providers for direction. If unable to reach your providers, please call the CAN HELP LINE AT or go to the closest Emergency Room. 5. You should not drink alcohol or take un-prescribed drugs, including prescription medications that are not yours, recreational drugs, marijuana, and synthetics. 6. You have been provided with the Mental Health Advance Directives Pamphlet for your review. AFTERCARE APPOINTMENTS: * Please call your insurance company prior to your scheduled appointment to confirm your aftercare providers are covered. Take your insurance information to your appointments. . Discharge / Aftercare Planning Primary Care Physician: Name: Dr. 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 Follow-Up Care Plan for Follow-Up Care: See above. Current Hospital Diet Patient's current hospital diet: Regular Diet Discharge Diet Recommended Diet: Regular Diet Procedures Procedures Performed: No Pending Studies Pending Studies at Discharge: No Medical Emergencies . Who to Call and When: Medical Emergencies: For questions or emergencies related to your hospital stay, please contact the Inpatient Behavioral Health Unit at [phone]. A alumnae secretary is on-call 03/11 for the Behavioral Health Unit for emergencies At any time you feel your situation is an emergency, you may also call 911 immediately. . Non-Emergent Contact Non-Emergency issues call your: Psychiatrist, Therapist Past History Medical & Surgical History: (1) Substance use disorder Advance Directives Existing Advance Directive: No Do You Have an Existing Mental: No Existing Living Will: No Existing Power of Presser Machine: No Advance Directives Info Given: To Pt/S.O. Advance Directives Reason: Declines as Mental Health Visit. Discharge Summary Admission HPI Per the Admitting provider: Ja Gordon 27-year-old male who was driven to the emergency room by his family for a mental health evaluation. Family reported "constant disorientation" for the past 5 days with behavior. Pt states he uses substances to "look at everything from different perspectives". He states he uses marijuana and cigarettes at times which allow him to experience a "normal, elevated, and depressed" view of situations, "that of course is influenced by my current mood, it would be graphed almost as 3 parallel waves." Pt states 2- 3 months ago he "pieced everything together". His description of this stay, but generally meaning he has figured out the meaning of life, and how best to manage the world. Patient refers to this idea as a "puzzle/joke -because it means when you figure it out for yourself". Patient states, "I have the information and trying to be cautious, but goes fast as I can." Pt reports "several organizations who have figured it out too", but states is trying to "find the good guys." When questioned about the events leading to his admission, the patient states " I had an experience, you could say it was caused by the Divine." Pt reports accepting a "marijuana/vape shot" from a downstairs neighbor several days ago. He states he was with his ex-girlfriend at the time. Pt reports it was in the high that he "solved the puzzle" in front of his ex, "who referred to herself as cande". He states she became distraught at his conclusion and "feared the world would end". "That's what happens when you solve the puzzle for other people - they get scared". Pt reports he set out to further explain his new insight and was found by family members walking the streets of [place], "in my ismael shirt, which didn't necessarily work other than I guess I was walking in front of traffic." Pt reports he was taken home by his family and "put in isolation". ED notes state the family presented for mental health evaluation upon recommendation from a family friend/therapist. Pt reports limited sleep for an unknown period of time. He states he sleeps at "6-15 minute clips, but I feel refreshed. Still disoriented though." He feels he reached this state due to malnutrition and believes he can heal himself through proper nutritional intake, "something I wasn't paying close enough attention to before." Family reports a 20lb weight loss in the last few months. Pt is requesting a visit from [facility] to further discuss the matter. He reports his only psychiatric history being a diagnosis of OCD which he views as a "super power". He reports a 3-week trial of buspirone, initially prescribed for his OCD, but states he only took it to aid with smoking cessation. Pt states, "there is nothing psychologically wrong with me, that's why I never saw anyone." Pt is severely disorganized and shares with this provider the extent of his knowledge and "how everything is interwoven". Pt states several times, "is this where the straight jackets come out?" He denies overt depression and states, "I trained in a depressed state my entire life, I feel better with myself now." Pt also denies symptoms of anxiety, feeling he can "turn anxious energy into positive energy." Pt offers a great deal of philosophical anecdotes to his history, and closes by saying, "If I'm the first one here, then I'm the CPU for the whole human race - that's not a title I want to take, I 'd rather just do computing while I'm here." Pt appears to believe that he is involved in a plan here on the unit and is seeking answers as to our agenda and how we will be utilizing him. He denies SI/HI, current A/V hallucinations, and PTSD. Admission Exam Per the Admitting provider: Please see admission H&P. Consultations None. Hospital Course (1) Unspecified psychosis 07/31 - Seroquel 50mg prn ordered; 100mg dose to be offered tonight. Consider increasing to 200mg tomorrow evening. Pt provided with patient handout on the medication. - Encouraged use of medication to aid in clear thinking, regular sleeping habits, and good nutritional intake. - Will delay dietary consult until patient is more oriented to reality. Seems reasonable to request assistance due to reported 20lb weight loss, but would not likely be beneficial in his current disorganized state. - Gain supplemental from family as to timeline and extent of his current symptoms - Encourage participation in group and recreational therapies as appropriate and tolerated, discuss reality testing, and development of healthy coping strategies. - Family meeting with identified supports when patient appears more appropriate. 08/01 - Continue medications as above. Unwilling for increase to HS Seroquel at this time. - Fasting labs reviewed: fasting glucose elevated at 100, lipid panel wnl - Dietary consult if still interested once more appropriate, as still not likely to benefit fully from the encounter. - Encouraged to rest and catch up on sleep if able. - Family meeting with parents scheduled for tomorrow 08/02 -Patient again unwilling to increase Seroquel and in fact he is appearing rather drowsy this morning. Discussed consideration for converting Seroquel to olanzapine for more potent D2 blockade with less sedation however he preferred to give it another day before considering an alternative. No additional Haldol prn's used overnight and should be utilized for ongoing psychosis. -Family meeting scheduled for today -72 hour notice has been signed and will come due on the 1539; later rescinded 08/03 - Olanzapine 5mg qHS ordered with 5mg prn dosing q4h. Quetiapine d/c'd as patient unwilling for further titration to target thought blocking, and may be contributing to day-time sedation. - 72-hour notice re-submitted - expires 08/06 @ 0930 - Will require aftercare prior to discharge - Collateral information acquired from parents during family session yesterday 08/04 -Continue olanzapine 5 mg nightly. -Fasting labs were checked on 08/01/2017, glucose elevated at 100, cholesterol levels within normal limits. -Aftercare being arranged at [facility]. Follow-up with PCP scheduled for 08/07/2017, as [facility] will not provide an appointment with a psychiatrist until he has been seen by his therapist twice. -Patient educated again about the importance of abstaining from hallucinogens due to the risk of psychosis. -He has submitted another 72 hour notice, which expires the morning of 2017. If he is unwilling to rescind it, he may be discharged as early as tomorrow. 08/05 -Psychosis improved, continue olanzapine, and avoid controlled substances. -F/u at [facility]. (2) Substance use disorder 07/31 - unable to engage in adequate discussion on substance abuse behaviors at time of admission. Will continue to evaluate as patient becomes more reality oriented. Plan to provide counseling on recommendations for discontinuation of illicit substances when patient is more stable and better able to participate in discussion. 08/03 - The patient's reports history of substance use, including smoking marijuana believed to be related to this hospitalization. Brief intervention was offered and accepted Intervention was greater than 5 min in length. Brief interventions include: 1. Assess Readiness to Quit, 2. Advise: Help Patient to Reduce or Abstain from substance use, 3. Agree: Set Specific, Feasible Goals, 4. Assist: Anticipate barriers, Problem-Solving Solutions. Social work to 5. Arrange: Referrals to appropriate treatment. Summary of intervention: The patient is in precontemplation stage with regards to transtheoretical model of change. The patient is advised to decrease substance use due to interactions with medications and side effects which can lead to psychotic-appearing mentation and behaviors. The patient agreed to outpatient D&A counseling and will be provided with recovery materials to continue to education self on how to cope with their condition without substance use. 08/04 -Reinforced psychoeducation regarding the risks of ongoing cannabis/other hallucinogen use, including return of psychotic symptoms, development of schizophrenia or another primary thought disorder, impairment in cognition and ability to function, and potential legal consequences. The patient demonstrates limited insight and judgment. 08/05 -Referred to [facility] for psychiatry and therapy for psychosis and substance abuse. Risk Factors Assessment Male: Yes : Yes /single/: Yes Higher / Fall in social status: No Access to guns: No Health problems: No Substance use disorders: Yes Previous attempt: No Previous psychiatric stay: No Hopelessness: No Smoker: Yes Protective Factors Assessment Buddhism beliefs: Yes : No Responsible for young children: No Employed: Yes Stable relationships: Yes Supportive family: Yes Good rapport with provider: No Absence of risk factors above: Yes (Risk factors were mitigated by admission to the inpatient unit, use of medications to target psychotic symptoms, family meeting with his parents, involving him in groups and therapy on the unit, working on healthy coping skills and a discharge safety plan, educating him about the risks of ongoing substance use and recommendations for abstinence, and referring him for outpatient services. His psychotic symptoms have resolved , he is eating and sleeping well, performing ADLs independently, taking medications as prescribed, and willing to follow up with outpatient providers. He will be going to stay with parents after discharge, and they have confirmed no access to guns. He is requesting discharge, has submitted a 72 hour notice which expires early tomorrow morning, and as he is no longer at acute risk of harm to himself or others, can be discharged and managed as an outpatient. He is consistently denied thoughts of harming himself or anyone else, and has no history of suicide attempts or violence towards others.) Day of Discharge Assessment Hospital Course: On admission, patient was started on quetiapine 100 mg nightly and 50 mg as needed. Although it was felt that his psychosis was substance induced, symptoms had persisted 5 days after last drug use. Quetiapine was selected due to the severity of his sleep disturbance. He endorsed racing thoughts, and his first night in the hospital continued to have limited sleep. The following day speech had slowed, but he was delayed in his thinking and responses, appeared sedated, continued to be symptomatic and was refusing to increase the dose of quetiapine. He continued to be preoccupied with thoughts about magic, and talked about his sense that he needed to save the world. He submitted a 72 hour notice requesting to withdraw from treatment, and again refused recommendations to increase his quetiapine dose. He had a family meeting with his parents on 08/02/2017. They reported that he began acting very strange about 1 week prior, was not sleeping and was talking about his magic love. He said he felt obsessed with thinking about magic and believing he had magic abilities, and believed that this was triggered by smoking pot that was laced with something. His parents stated he had always been a "deep thinker and lived in his head," but that these thoughts were far from his baseline. He said that he been diagnosed with obsessive-compulsive disorder in the past, and his parents said that as a child, he would write down everything and as a punishment they would take away his pencil and paper. He endorsed a history of compulsive behaviors, including having to turn the switch on his clock off a certain number of times and eating foods in a specific order, but denied any current compulsions. He did report constant obsessions, including telling himself repeatedly that magic is not real. He felt this is what led to his sleep disturbance. He said he smoked pot daily as it helped to calm his obsessions. He also talked about the breakup with his girlfriend, which occurred in the context of intoxication on the substance that he smoked that caused psychosis. His parents also shared that he was sent home from his job due to his bizarre behavior, and he stated that at work he believed he had psychic love and was able to transfer those love. His parents denied any known family history of schizophrenia. Recommendations for outpatient therapy and medication management were discussed, and patient agreed to live with his parents upon discharge. They confirmed he does not have access to guns, and talked about the rules including no drug use in their home, which the patient agreed to. As his psychosis improved in the hospital, he was able to engage in more reality based conversation. He stated that he had smoked something he got from a friend called Anna Marie Lambel, which she believed was some sort of synthetic cannabinoid, but per Internet search is a strain of cannabis Sativa that has stimulant like effects. He agreed that this substance is what triggered his psychotic symptoms, and denied that he had never had this experience previously with other drugs he abused, including cannabis and dabs. Multiple staff processed his substance abuse with him, provided psychoeducation about cannabis and other psychoactive substance use, and encouraged him to work on a plan for avoiding substances. He did not feel it necessary to change his cannabis use, although he did state he would not use substances that he was unfamiliar with. He talked about moving to a state where cannabis is legal for recreational use so that he could buy specific strains and be confident of their contents. He rescinded his for 72 hour notice, but then resubmitted it. He agreed to switch from quetiapine to olanzapine, as he felt quetiapine was overly sedating, and did well with olanzapine 5 mg nightly. His psychotic symptoms resolved, as did his sedation. He was sleeping and eating well, performing ADLs independently, and attending and participating appropriately in groups and therapy. He was referred for outpatient care. Day of Discharge Assessment: Patient states that he is much improved from admission, states that he likes the olanzapine much better than quetiapine and feels it is helpful for his thoughts. He thinks that he has always had racing thoughts, but that they have now slowed and are more manageable. He says he likes that the medication gives him a sensation of having a headbands, "it is like I am wearing a hat, but I like it, helps keep me under control, stop me from going off the rails." He denies other side effects to the medication, denies hallucinations, paranoia, and grandiose delusions. He states that he remembers his thought process at the time of admission, and no longer believes that he has magical abilities. He remembers thinking that he is "understood a puzzle or joke that explained reality, had a special job to do to save the world ," and that this led to him feeling very anxious and not sleeping for several days. He says he feels comfortable going to stay with his parents, and to follow up with outpatient providers. He believes that his psychotic symptoms were due to his substance use, and thinks that now that he is on medication that helps him feel more in control of his thinking, he may not need or want to use drugs as much. Well nourished, well developed WM appearing stated age. Casually dressed and adequately groomed. Calm and cooperative. Seated in NAD, with fair eye contact and no abnormal movements. Speech is normal rate, volume, and tone. Mood is "good," and affect is stable and congruent. Thoughts are goal directed for the most part, although slightly loose at times. The patient denied suicidal and homicidal ideation and was able to review his safety plan. No paranoia, delusions, or hallucinations, and did not appear to be responding to internal stimuli. Cognition was grossly intact. Alert and oriented to person, place and time. Intelligence is consistent with level of education. Insight and and judgment are fair. Laboratory Test 07/30/17 20:35 07/30/17 20:43 07/30/17 22:25 08/01/17 07:57 White Blood Count 11.13 Red Blood Count 5.20 Hemoglobin 16.1 Hematocrit 44.8 Mean Corpuscular Volume 86.2 Mean Corpuscular Hemoglobin 31.0 Mean Corpuscular Hemoglobin Concent 35.9 RDW Standard Deviation 41.8 RDW Coefficient of Variation 13.1 Platelet Count 265 Mean Platelet Volume 11.2 Sodium Level 140 Potassium Level 3.6 Chloride Level 108 Carbon Dioxide Level 25 Anion Gap 7.0 Blood Urea Nitrogen 12 Creatinine 1.00 Est Creatinine Clear Calc Drug Dose 102.4 Estimated GFR () 118.2 Estimated GFR (Non- 102.0 BUN/Creatinine Ratio 11.7 Random Glucose 87 Calcium Level 9.4 Total Bilirubin 1.1 Aspartate Amino Transferase (AST) 23 Alanine Aminotransferase (ALT) 26 Alkaline Phosphatase 67 Total Protein 8.0 Albumin 4.6 Globulin 3.4 Albumin/Globulin Ratio 1.3 Thyroid Stimulating Hormone (TSH) 1.690 Salicylates Level < 1.7 Acetaminophen Level < 2 Ethyl Alcohol mg/dL < 3.0 Urine Color YELLOW Urine Appearance CLEAR Urine pH 5.5 Urine Specific [place] 1.040 Urine Protein NEG Urine Glucose (UA) NEG Urine Ketones NEG Urine Occult Blood NEG Urine Nitrite NEG Urine Bilirubin NEG Urine Urobilinogen NEG Urine Leukocyte Esterase SMALL Urine WBC (Auto) 1-5 Urine RBC (Auto) 0-4 Urine Hyaline Casts (Auto) 0 Urine Epithelial Cells (Auto) 5-10 Urine Bacteria (Auto) NEG Urine Synthetic Stimulants Pending Urine Opiates Screen NEG Urine Methadone, Qualitative NEG Urine Barbiturates NEG Urine Phencyclidine (PCP) Level NEG Ur Amphetamine/Methamphetamine NEG MDMA (Ecstasy) Screen NEG Urine Benzodiazepines Screen NEG Urine Cocaine Metabolite NEG Cannabinoids Comment Pending Urine Synthetic Cannabinoids Pending Ur Synthetic Cannabinoids Confirm Pending Urine Marijuana (THC) NEG Fasting Glucose 100 Triglycerides Level 82 Cholesterol Level 145 HDL Cholesterol 43 LDL Cholesterol, Calculated 86 VLDL Cholesterol, Calculated 16 Cholesterol/HDL Ratio 3.4 Total Time Total Time Spent (min): Greater than 30 minutes Total Time Included: examination of the patient, discharge planning, medication reconciliation Tobacco Cessation at Discharge Smoking Status: Light Tobacco Smoker FDA approved Prescription: nicotine replacement product (nicotine patch and f/ u with psychiatrist and therapist)
[2017-08-05] MEDS: NICOTINE 21 MG/24 HR TDSY EXT SCH (09:00)
== END 2017-08-05 15:05 | disposition home or self-care (01) | DRG 885 ==
LOC: C.EDB 19:35 → C.MHU 07-31 00:49
PROVIDERS: ADMIT Psychiatry & Neurology Child & Adolescent Psychiatry; ATTEND Psychiatry & Neurology Child & Adolescent Psychiatry
DX: F29 Unspecified psychosis not due to a substance or known physiological condition (principal); F12.959 Cannabis use, unspecified with psychotic disorder, unspecified; F17.210 Nicotine dependence, cigarettes, uncomplicated; Z88.0 Allergy status to penicillin; Z88.8 Allergy status to other drugs, medicaments and biological substances